=== PATIENT | female | born 1965 ===

== ENCOUNTER 2023-11-08 09:00 | Inpatient (IN) | payer OTHER ==
[~2023-11-08] VITALS: Ht 165.1 cm; Wt 77.1 kg
[2023-11-08 10:38] LABS: PH,URINE 5.5 (5.0-8.0); URINE APPEARANCE Clear; URINE BILIRRUBIN Negative (NEGATIVE); URINE BLOOD Negative; URINE COLOR Yellow; URINE GLUCOSE Negative (NEGATIVE); URINE LEUKOCYTE Negative; URINE NITRATE Negative; URINE PROTEIN Negative (NEGATIVE); URINE UROBILINOGEN 0.2 E.U./dl
[2023-11-08 10:41] LABS: HEMATOCRIT 39.9 % (36.0-45.00); HEMOGLOBIN 13.7 g/dL (12.0-15.00); MEAN CELL VOLUME 88.5 fL (80.00-100.00); MEAN CORPUSCULAR HEMOGLOBIN 30.5 pg (27.00-32.0); MEAN CORPUSCULAR HGB CONC 34.5 g/dl (32.0-36.0); PLATELET COUNT 294 K/uL (150-450); RED BLOOD COUNT 4.51 M/uL (4.00-6.00); RED CELL DISTRIBUTION WIDTH 12.9 % (11.5-14.5)
[2023-11-08 10:43] LABS: URINE BACTERIA 56.6 uL (0.0-1933); URINE EPITHELIAL CELLS 1.6 uL (0.0-38.8); URINE RBC 6.7 uL (0.0-20.8); URINE WBC 2.1 uL (0.0-23.2)
[2023-11-08 11:14] LABS: INR 1.04; PARTIAL THROMBOPLASTIN TIME 28.5 SECONDS (22.0-34.0); PROTHROMBIN TIME 10.9 SECONDS (9.0-11.5)
[2023-11-08 11:38] LABS: ALBUMIN 3.8 gm/dL (3.4-5.0); BILIRUBIN TOTAL 1.14 mg/dL (0.3-1.2); CALCIUM 10.6 mg/dL (8.5-10.1); CREATININE SERUM 0.76 mg/dL (0.55-1.02); GFR 79.01; GLOBULINA 3.2 G/DL (2.4-3.5); POTASSIUM 3.85 mEq/L (3.5-5.1)
[2023-11-11] MEDS ORDERED: CEFOXITIN SODIUM 2,000 MG VIAL IV ONE (09:21)
[2023-11-11] MEDS ORDERED: THROMBIN,HU/FIBRINOGEN/CALCIUM 10 ML SYRINGE TOP ONE (11:26)
[2023-11-11] MEDS ORDERED: SUGAMMADEX SODIUM 200 MG/2 ML VIAL IV ONE (12:01)
[2023-11-11] MEDS ORDERED: RINGERS SOLUTION,LACTATED 1,000 ML IV SCH (12:15)
[2023-11-11] MEDS ORDERED: MORPHINE SULFATE 4 MG/ML CARTRIDGE IV PRN (12:15)
[2023-11-11] MEDS ORDERED: ONDANSETRON HCL 2 MG/ML VIAL IV PRN (12:15)
[2023-11-11] MEDS ORDERED: OxyCODONE HCL/APAP UD (PERCOCET) PO PRN (12:15)
[2023-11-11 13:33] LABS: HEMATOCRIT 36.5 % (36.0-45.00); HEMOGLOBIN 12.5 g/dL (12.0-15.00); MEAN CELL VOLUME 88.6 fL (80.00-100.00); MEAN CORPUSCULAR HEMOGLOBIN 30.4 pg (27.00-32.0); MEAN CORPUSCULAR HGB CONC 34.3 g/dl (32.0-36.0); PLATELET COUNT 296 K/uL (150-450); RED BLOOD COUNT 4.12 M/uL (4.00-6.00); RED CELL DISTRIBUTION WIDTH 12.6 % (11.5-14.5)
[2023-11-11 13:59] LABS: ALBUMIN 3.2 gm/dL (3.4-5.0); CREATININE SERUM 0.88 mg/dL (0.55-1.02); GFR 66.71; MAGNESIUM 1.7 mg/dL (1.8-2.4); PHOSPHOROUS 2.6 mg/dL (2.5-4.9); POTASSIUM 3.71 mEq/L (3.5-5.1)
[2023-11-11] MEDS ORDERED: HYOSCYAMINE SULFATE 0.125 MG TAB.SUBL ONE (15:54)
[2023-11-11] MEDS ORDERED: HYOSCYAMINE SULFATE 0.125 MG TAB.SUBL SL SCH (17:00)
[2023-11-11] MEDS ORDERED: KETOROLAC TROMETHAMINE 30 MG VIAL IM SCH (18:00)
[2023-11-11] MEDS ORDERED: FAMOTIDINE/PF 20 MG/2 ML VIAL IV PUSH SCH (21:00)
[2023-11-11] MEDS ORDERED: CEFAZOLIN SODIUM 1,000 MG VIAL IV SCH (21:00)
[2023-11-12 07:55] LABS: HEMATOCRIT 36.2 % (36.0-45.00); HEMOGLOBIN 12.4 g/dL (12.0-15.00); MEAN CELL VOLUME 88.2 fL (80.00-100.00); MEAN CORPUSCULAR HEMOGLOBIN 30.3 pg (27.00-32.0); MEAN CORPUSCULAR HGB CONC 34.3 g/dl (32.0-36.0); PLATELET COUNT 300 K/uL (150-450); RED BLOOD COUNT 4.11 M/uL (4.00-6.00); RED CELL DISTRIBUTION WIDTH 12.6 % (11.5-14.5)
[2023-11-12 08:36] LABS: ALBUMIN 3.3 gm/dL (3.4-5.0); CALCIUM 10.2 mg/dL (8.5-10.1); CREATININE SERUM 0.68 mg/dL (0.55-1.02); GFR 89.83; PHOSPHOROUS 3.1 mg/dL (2.5-4.9); POTASSIUM 4.29 mEq/L (3.5-5.1)
[2023-11-12] MEDS ORDERED: ENOXAPARIN SODIUM 40 MG/0.4 ML SYRINGE SUBCUTANEO SCH (09:00)
[2023-11-12] MEDS ORDERED: DOCUSATE CALCIUM 240 MG CAPSULE PO PRN (09:45)
[2023-11-12] MEDS ORDERED: RINGERS SOLUTION,LACTATED 500 ML IV SCH (09:49)
[2023-11-12] MEDS ORDERED: SIMETHICONE 125 MG CAPSULE PO SCH (13:00)
[2023-11-13 07:46] LABS: HEMATOCRIT 32.2 % (36.0-45.00); HEMOGLOBIN 11.1 g/dL (12.0-15.00); MEAN CELL VOLUME 88.9 fL (80.00-100.00); MEAN CORPUSCULAR HEMOGLOBIN 30.7 pg (27.00-32.0); MEAN CORPUSCULAR HGB CONC 34.5 g/dl (32.0-36.0); PLATELET COUNT 254 K/uL (150-450); RED BLOOD COUNT 3.62 M/uL (4.00-6.00); RED CELL DISTRIBUTION WIDTH 12.5 % (11.5-14.5)
[2023-11-13 08:30] LABS: CALCIUM 9.3 mg/dL (8.5-10.1); CREATININE SERUM 0.72 mg/dL (0.55-1.02); GFR 84.1; POTASSIUM 4.09 mEq/L (3.5-5.1)
[2023-11-13] MEDS ORDERED: ENALAPRILAT DIHYDRATE 1.25 MG/ML VIAL IV PRN (16:00)
== END 2023-11-14 12:50 | disposition home or self-care (01) | DRG 743 ==
LOC: SURH 11-11 06:10 → O/R 11-11 06:10 → SURH 11-11 09:00
PROVIDERS: ADMIT Obstetrics & Gynecology Gynecologic Oncology; ATTEND Obstetrics & Gynecology Gynecologic Oncology
PROC: 0DBW0ZZ Excision of Peritoneum, Open Approach (ICD-10-PCS; 2023-11-11)
PROC: 07BC0ZZ Excision of Pelvis Lymphatic, Open Approach (ICD-10-PCS; 2023-11-11)
PROC: 0UT20ZZ Resection of Bilateral Ovaries, Open Approach (ICD-10-PCS; 2023-11-11)
PROC: 0UT70ZZ Resection of Bilateral Fallopian Tubes, Open Approach (ICD-10-PCS; 2023-11-11)
PROC: 0DBU0ZZ Excision of Omentum, Open Approach (ICD-10-PCS; 2023-11-11)
PROC: 3E1M38Z Irrigation of Peritoneal Cavity using Irrigating Substance, Percutaneous Approach (ICD-10-PCS; 2023-11-11)
PROC: 0UT90ZZ Resection of Uterus, Open Approach (ICD-10-PCS; principal; 2023-11-11 13:00)
DX: D25.1 Intramural leiomyoma of uterus (principal); Z20.822 Contact with and (suspected) exposure to COVID-19

== ENCOUNTER 2024-11-02 09:48 | Outpatient (CLI) | payer OTHER | END 2024-11-02 09:55 | disposition home or self-care (01) | LOC: SONOGRAMA 09:48 | PROVIDERS: ATTEND Pathology Anatomic Pathology | DX: D34 Benign neoplasm of thyroid gland (principal); E07.89 Other specified disorders of thyroid; E04.2 Nontoxic multinodular goiter ==